=== PATIENT | female | born 1960 | race Two or more races ===

== ENCOUNTER 2023-10-23 11:02 | Inpatient (IN) | payer OTHER ==
[~2023-10-23] VITALS: Ht 167.6 cm; Wt 77.0 kg
[2023-10-23] MEDS: HEPARIN DRIP/D5W 100UNITS/ML 250 ML IV SCH (00:28)
[2023-10-23 11:51] LABS: Urine Bacteria None Seen /hpf (None Seen)
[2023-10-23 11:53] LABS: Basophils # (auto) 0 10 ^3/uL (0-0.2); Basophils % (auto) 0.3 % (0.0-2.0); Eosinophils # (auto) 0 10 ^3/uL (0-0.8); Eosinophils % (auto) 0.5 % (0.0-7.0); Hematocrit 38.4 % (36.0-46.0); Hemoglobin 12.8 g/dL (12.2-16.2); Lymphocytes # (auto) 0.6 10 ^3/uL (0.4-5.4); Mean Corpuscular Hemoglobin 30.7 pg (28.0-32.0); Mean Corpuscular Hgb Conc. 33.3 g/dL (32.0-36.0); Mean Corpuscular Volume 92.3 fL (80.0-100.0); Monocytes # (auto) 0.2 10 ^3/uL (0-1.3); Monocytes % (auto) 2.8 % (0.0-12.0); Neutrophils # (auto) 6.3 10 ^3/uL (1.6-8.6); Neutrophils % (auto) 87.4 % (37.0-80.0); Red Blood Cells 4.16 10^6/uL (4.0-5.20); Red Cell Distribution Width 14.6 % (11.8-14.3); White Blood Cell 7.2 10^3/uL (4.4-10.8)
[2023-10-23 11:57] LABS: Chloride 114 mmol/L (98-107); Sodium 140 mmol/L (136-145)
[2023-10-23 11:58] LABS: Anion Gap 5 (5-15); Calcium 10.2 mg/dL (8.7-10.4); Carbon Dioxide 21 mmol/L (20-30)
[2023-10-23 12:03] LABS: BUN/Creatinine Ratio 10.9 (10.0-20.0); Blood Urea Nitrogen 42 mg/dL (9-23); Glucose 94 mg/dL (74-106)
[2023-10-23 12:10] LABS: Potassium 6.3 mmol/L (3.5-5.1)
[2023-10-23 12:12] LABS: Urine Blood Negative /uL (Negative); Urine Clarity Clear (Clear); Urine Color Colorless (Yellow); Urine Protein, UAD 2+ (Negative); Urine Specific Gravity 1.012 (1.001-1.035); Urine Urobilinogen Normal (Negative); Urine WBC 11 /hpf (0 - 5); Urine pH 7.5 (5.0-9.0)
[2023-10-23] MEDS: ALBUTEROL SULF 2.5 MG/0.5ML(0.5%) NEB SOLN NEB ONE (12:27)
[2023-10-23] MEDS: FUROSEMIDE 20 MG/2 ML VIAL IV ONE (13:32)
[2023-10-23] MEDS: CALCIUM GLUC 1,000mg/50ml-NS 50 ML IV ONE (13:33)
[2023-10-23] MEDS: InsuLIN REG 1unit/0.01ml Soln (100units/ml) IV ONE (13:33)
[2023-10-23] MEDS: DEXTROSE (50%) 50ML SYRG IV ONE (13:36)
[2023-10-23] MEDS: SODIUM ZIRCONIUM CYCL 10 GM PAK PO ONE (13:36)
[2023-10-23] MEDS: SODIUM BICARB 8.4% 50Meq/50ml SYR INJ IV ONE (13:41)
[2023-10-23] MEDS ORDERED: DEXTROSE (50%) 50ML SYRG IV PRN (14:15)
[2023-10-23] MEDS ORDERED: hydrALAZINE HCL 20 MG/ML VL IV PRN (14:15)
[2023-10-23 14:34] LABS: Triglycerides 65 mg/dL (< 150)
[2023-10-23 14:35] LABS: LDL Cholesterol 190 mg/dL (< 100)
[2023-10-23 14:36] LABS: Cholesterol 291 mg/dL (< 200); HDL Cholesterol 87 mg/dL (40-59)
[2023-10-23 15:16] LABS: Protein, Urine 169.7 mg/dL (0.0-11.9)
[2023-10-23 15:19] LABS: Creatinine, Urine 61.65 mg/dL (30.0-125.0)
[2023-10-23] MEDS ORDERED: [UNRECOGNIZED DRUG - CODE] XX (15:41)
[2023-10-23] MEDS ORDERED: GLIP5TAB21 PO (15:41)
[2023-10-23] MEDS ORDERED: MORPHINE SULFATE INJ 2 MG/ml SYRG IV PRN (16:15)
[2023-10-23] MEDS ORDERED: ACETAMINOPHEN 325 MG TAB PO PRN (16:15)
[2023-10-23] MEDS ORDERED: NITROGLYCERIN 0.4 MG SL TAB SL PRN (16:15)
[2023-10-23] MEDS: ACCU-CHEK COMFORT CURVE STRIP VI SCH (17:00)
[2023-10-23] MEDS: InsuLIN REG 1unit/0.01ml Soln (100units/ml) SC SCH (19:02)
[2023-10-23] MEDS: SODIUM CHLORIDE 0.9% 2,000 ML IV ONE (19:06)
[2023-10-23] MEDS: SODIUM CHLORIDE 0.9% 1,000 ML IV SCH (19:08)
[2023-10-23] MEDS: HEPARIN SODIUM (PORCINE) 5000 UNITS/ML 1ML VIAL SC SCH (20:10)
[2023-10-23] MEDS: LABETALOL HCL 20 MG/4 ML VL IV ONE (21:57)
[2023-10-23] MEDS: ASPirin 325 MG TAB PO ONE (23:09)
[2023-10-23] MEDS: CLOPIDOGREL BISULFATE 75 MG TAB PO ONE (23:09)
[2023-10-23] MEDS: METOPROLOL TARTRATE 25 MG TAB PO SCH (23:17)
[2023-10-23 23:34] LABS: INR 0.99 (0.9-1.15); Partial Thromboplastin Time 26.5 SEC (24.5-34.5); Prothrombin Time 10.5 sec (9.3-11.8)
[2023-10-24] VITALS (22 sets, daily range): BP systolic 95–182; BP diastolic 43–85; PULSE 62–90; RESP 12–21; TEMP 98.3–100.3; O2SAT 92–98
[2023-10-24] MEDS: HEPARIN SODIUM (PORCINE) 5000 UNITS/ML 1ML VIAL IV ONE (00:32)
[2023-10-24 00:40] LABS: Basophils # (auto) 0 10 ^3/uL (0-0.2); Basophils % (auto) 0.3 % (0.0-2.0); Eosinophils # (auto) 0.1 10 ^3/uL (0-0.8); Eosinophils % (auto) 0.6 % (0.0-7.0); Hematocrit 34.2 % (36.0-46.0); Hemoglobin 11.3 g/dL (12.2-16.2); Lymphocytes # (auto) 0.9 10 ^3/uL (0.4-5.4); Lymphocytes % (auto) 9.6 % (10.0-50.0); Mean Corpuscular Hemoglobin 30.3 pg (28.0-32.0); Mean Corpuscular Hgb Conc. 33.1 g/dL (32.0-36.0); Mean Corpuscular Volume 91.5 fL (80.0-100.0); Monocytes # (auto) 0.6 10 ^3/uL (0-1.3); Monocytes % (auto) 6.8 % (0.0-12.0); Neutrophils # (auto) 7.4 10 ^3/uL (1.6-8.6); Neutrophils % (auto) 82.7 % (37.0-80.0); Red Blood Cells 3.74 10^6/uL (4.0-5.20); Red Cell Distribution Width 14.7 % (11.8-14.3)
[2023-10-24] MEDS: LABETALOL HCL 20 MG/4 ML VL IV PRN (02:16)
[2023-10-24 05:02] LABS: Basophils # (auto) 0 10 ^3/uL (0-0.2); Basophils % (auto) 0.4 % (0.0-2.0); Eosinophils # (auto) 0.1 10 ^3/uL (0-0.8); Eosinophils % (auto) 1.5 % (0.0-7.0); Hematocrit 33.6 % (36.0-46.0); Hemoglobin 11.4 g/dL (12.2-16.2); Lymphocytes # (auto) 1.5 10 ^3/uL (0.4-5.4); Lymphocytes % (auto) 15.9 % (10.0-50.0); Mean Corpuscular Hemoglobin 30.5 pg (28.0-32.0); Mean Corpuscular Hgb Conc. 33.9 g/dL (32.0-36.0); Mean Corpuscular Volume 90.2 fL (80.0-100.0); Monocytes # (auto) 0.6 10 ^3/uL (0-1.3); Monocytes % (auto) 6.4 % (0.0-12.0); Neutrophils # (auto) 6.9 10 ^3/uL (1.6-8.6); Neutrophils % (auto) 75.8 % (37.0-80.0); Nucleated Red Blood Cells % 0.1 %; Red Blood Cells 3.73 10^6/uL (4.0-5.20); Red Cell Distribution Width 14.5 % (11.8-14.3); White Blood Cell 9.2 10^3/uL (4.4-10.8)
[2023-10-24 05:17] LABS: Albumin 3.7 g/dL (3.2-4.8); Alkaline Phosphatase 66 U/L (46-116); Anion Gap 6 (5-15); Aspartate Aminotransferase 20 U/L (13-40); BUN/Creatinine Ratio 10.3 (10.0-20.0); Bilirubin, Total 0.4 mg/dL (0.2-1.0); Blood Urea Nitrogen 40 mg/dL (9-23); Calcium 9.7 mg/dL (8.7-10.4); Carbon Dioxide 22 mmol/L (20-30); Chloride 114 mmol/L (98-107); Glucose 100 mg/dL (74-106); Phosphorus 3.2 mg/dL (2.4-5.1); Sodium 142 mmol/L (136-145); Total Protein 6.5 g/dL (5.7-8.2); Uric Acid 6.2 mg/dL (3.1-7.8)
[2023-10-24 05:19] LABS: INR 1.03 (0.9-1.15); Partial Thromboplastin Time 49.8 SEC (24.5-34.5); Prothrombin Time 10.9 sec (9.3-11.8)
[2023-10-24 05:21] LABS: Alanine Aminotransferase < 9 U/L (7-40)
[2023-10-24 05:23] LABS: Potassium 5.6 mmol/L (3.5-5.1)
[2023-10-24] MEDS: HEPARIN DRIP/D5W 100UNITS/ML 250 ML IV SCH ×2 (07:00→14:01)
[2023-10-24] MEDS: DEXTROSE (50%) 50ML SYRG IV ONE ×2 (08:49→17:37)
[2023-10-24] MEDS: CALCIUM GLUC 1,000mg/50ml-NS 50 ML IV ONE (08:53)
[2023-10-24] MEDS: SODIUM ZIRCONIUM CYCL 10 GM PAK PO ONE ×2 (08:54→17:52)
[2023-10-24] MEDS: hydrALAZINE HCL 20 MG/ML VL IV PRN (08:57)
[2023-10-24] MEDS: InsuLIN REG 1unit/0.01ml Soln (100units/ml) IV ONE ×2 (08:59→17:50)
[2023-10-24] MEDS: ONDANSETRON HCL 4 MG/2 ML VIAL ONE (09:41)
[2023-10-24] MEDS: ONDANSETRON HCL 4 MG/2 ML VIAL IV ONE (09:41)
[2023-10-24] MEDS ORDERED: ONDANSETRON HCL 4 MG/2 ML VIAL IV PRN (09:45)
[2023-10-24] MEDS ORDERED: CLOPIDOGREL BISULFATE 75 MG TAB PO SCH (10:00)
[2023-10-24] MEDS: ASPirin 81 mg TAB PO SCH (10:29)
[2023-10-24] MEDS: NIFEdipine ER 30 MG TAB PO SCH (10:29)
[2023-10-24 13:37] LABS: INR 1.03 (0.9-1.15); Prothrombin Time 10.9 sec (9.3-11.8)
[2023-10-24 13:41] LABS: Partial Thromboplastin Time 87.1 SEC (24.5-34.5)
[2023-10-24 16:40] LABS: Chloride 112 mmol/L (98-107); Sodium 138 mmol/L (136-145)
[2023-10-24 16:41] LABS: Anion Gap 6 (5-15); Calcium 9.9 mg/dL (8.7-10.4); Carbon Dioxide 20 mmol/L (20-30)
[2023-10-24 16:46] LABS: BUN/Creatinine Ratio 9.3 (10.0-20.0); Blood Urea Nitrogen 38 mg/dL (9-23); Glucose 166 mg/dL (74-106)
[2023-10-24 16:49] LABS: Potassium 6.3 mmol/L (3.5-5.1)
[2023-10-24] MEDS: CALCIUM CHL 100MG/ML 500 MG in D5W 5% 100 ML IV ONE (17:15)
[2023-10-24] MEDS: SODIUM BICARB 8.4% 50Meq/50ml SYR INJ IV ONE (17:43)
[2023-10-24] MEDS: FUROSEMIDE 40 MG/4 ML VIAL IV ONE (17:49)
[2023-10-24 20:54] LABS: INR 1.05 (0.9-1.15); Prothrombin Time 11.1 sec (9.3-11.8)
[2023-10-24 21:00] LABS: Partial Thromboplastin Time 74.6 SEC (24.5-34.5)
[2023-10-25] VITALS (23 sets, daily range): BP systolic 118–170; BP diastolic 32–71; PULSE 56–81; RESP 12–23; TEMP 97.9–99; O2SAT 90–99
[2023-10-25 02:35] LABS: INR 1.05 (0.9-1.15); Prothrombin Time 11.1 sec (9.3-11.8)
[2023-10-25 02:37] LABS: Partial Thromboplastin Time 76.7 SEC (24.5-34.5)
[2023-10-25] MEDS ORDERED: HEPARIN DRIP/D5W 100UNITS/ML 250 ML IV SCH (03:00)
[2023-10-25 05:53] LABS: Urine Bacteria FEW /hpf (None Seen); Urine Blood TRACE /uL (Negative); Urine Clarity Clear (Clear); Urine Color Colorless (Yellow); Urine Protein, UAD 1+ (Negative); Urine Specific Gravity 1.008 (1.001-1.035); Urine Urobilinogen Normal (Negative); Urine WBC 29 /hpf (0 - 5)
[2023-10-25 06:15] LABS: Protein, Urine 78.3 mg/dL (0.0-11.9)
[2023-10-25 06:18] LABS: Creatinine, Urine 39.03 mg/dL (30.0-125.0)
[2023-10-25 09:59] LABS: Basophils # (auto) 0.1 10 ^3/uL (0-0.2); Eosinophils # (auto) 0.3 10 ^3/uL (0-0.8); Hematocrit 33.9 % (36.0-46.0); Hemoglobin 11.2 g/dL (12.2-16.2); Lymphocytes # (auto) 2.5 10 ^3/uL (0.4-5.4); Lymphocytes % (auto) 29.2 % (10.0-50.0); Mean Corpuscular Hemoglobin 30.3 pg (28.0-32.0); Mean Corpuscular Hgb Conc. 33.1 g/dL (32.0-36.0); Mean Corpuscular Volume 91.6 fL (80.0-100.0); Monocytes # (auto) 0.6 10 ^3/uL (0-1.3); Monocytes % (auto) 6.4 % (0.0-12.0); Neutrophils # (auto) 5.1 10 ^3/uL (1.6-8.6); Neutrophils % (auto) 59.4 % (37.0-80.0); Red Cell Distribution Width 14.4 % (11.8-14.3); White Blood Cell 8.6 10^3/uL (4.4-10.8)
[2023-10-25 10:07] LABS: Chloride 112 mmol/L (98-107); Potassium 4.7 mmol/L (3.5-5.1); Sodium 141 mmol/L (136-145)
[2023-10-25 10:08] LABS: Anion Gap 5 (5-15); Calcium 9.8 mg/dL (8.7-10.4); Carbon Dioxide 24 mmol/L (20-30)
[2023-10-25 10:13] LABS: BUN/Creatinine Ratio 11.1 (10.0-20.0); Blood Urea Nitrogen 47 mg/dL (9-23); Glucose 109 mg/dL (74-106)
[2023-10-25 10:14] LABS: INR 1.03 (0.9-1.15); Magnesium 1.6 mg/dL (1.6-2.6); Partial Thromboplastin Time 44.4 SEC (24.5-34.5); Prothrombin Time 10.9 sec (9.3-11.8)
[2023-10-25 10:15] LABS: Creatine Kinase IFCC 150 U/L (34-145); Phosphorus 3.4 mg/dL (2.4-5.1)
[2023-10-25] MEDS: HEPARIN DRIP/D5W 100UNITS/ML 250 ML IV SCH (10:30)
[2023-10-25 10:31] LABS: Uric Acid 6.2 mg/dL (3.1-7.8)
[2023-10-25] MEDS: cefTRIAXone 1GM/50ML D5W 50 ML IV ONE (12:32)
[2023-10-25] MEDS: PANTOPRAZOLE 40 MG TAB PO ONE (12:32)
[2023-10-25] MEDS: ATORVASTATIN 20 MG TAB PO ONE (12:32)
[2023-10-25] MEDS: amLODIPine BESYLATE 5 MG TAB PO ONE (12:43)
[2023-10-25] MEDS: FUROSEMIDE 20 MG TAB PO SCH (15:03)
[2023-10-25] MEDS: hydrALAZINE HCL 25 MG TAB PO SCH (15:03)
[2023-10-25 16:55] LABS: INR 1.03 (0.9-1.15); Partial Thromboplastin Time 65.5 SEC (24.5-34.5); Prothrombin Time 10.9 sec (9.3-11.8)
[2023-10-25] MEDS ORDERED: hydrALAZINE HCL 25 MG TAB PO SCH (22:00)
[2023-10-25] MEDS: ATORVASTATIN 20 MG TAB PO SCH (22:42)
[2023-10-25 22:52] LABS: INR 1.03 (0.9-1.15); Partial Thromboplastin Time 63.8 SEC (24.5-34.5); Prothrombin Time 10.9 sec (9.3-11.8)
[2023-10-26] VITALS (17 sets, daily range): BP systolic 122–156; BP diastolic 48–68; PULSE 52–75; RESP 10–20; TEMP 98.1–99.1; O2SAT 91–100
[2023-10-26 05:11] LABS: Basophils # (auto) 0.1 10 ^3/uL (0-0.2); Basophils % (auto) 0.8 % (0.0-2.0); Eosinophils # (auto) 0.4 10 ^3/uL (0-0.8); Eosinophils % (auto) 5.3 % (0.0-7.0); Hemoglobin 10.3 g/dL (12.2-16.2); Lymphocytes # (auto) 2.7 10 ^3/uL (0.4-5.4); Lymphocytes % (auto) 33.7 % (10.0-50.0); Mean Corpuscular Hemoglobin 30.1 pg (28.0-32.0); Mean Corpuscular Hgb Conc. 33.4 g/dL (32.0-36.0); Mean Corpuscular Volume 90.2 fL (80.0-100.0); Monocytes # (auto) 0.6 10 ^3/uL (0-1.3); Monocytes % (auto) 7.7 % (0.0-12.0); Neutrophils # (auto) 4.1 10 ^3/uL (1.6-8.6); Neutrophils % (auto) 52.5 % (37.0-80.0); Red Blood Cells 3.43 10^6/uL (4.0-5.20); Red Cell Distribution Width 14.3 % (11.8-14.3); White Blood Cell 7.9 10^3/uL (4.4-10.8)
[2023-10-26 05:19] LABS: Anion Gap 8 (5-15); Carbon Dioxide 23 mmol/L (20-30); Chloride 110 mmol/L (98-107); Potassium 4.3 mmol/L (3.5-5.1); Sodium 141 mmol/L (136-145)
[2023-10-26 05:20] LABS: Calcium 9.2 mg/dL (8.7-10.4)
[2023-10-26 05:25] LABS: BUN/Creatinine Ratio 9.6 (10.0-20.0); Blood Urea Nitrogen 46 mg/dL (9-23); Glucose 89 mg/dL (74-106)
[2023-10-26 05:35] LABS: INR 1.06 (0.9-1.15); Prothrombin Time 11.2 sec (9.3-11.8)
[2023-10-26 05:53] LABS: Partial Thromboplastin Time 77.2 SEC (24.5-34.5)
[2023-10-26] MEDS: PANTOPRAZOLE 40 MG TAB PO SCH (05:55)
[2023-10-26] MEDS: HEPARIN DRIP/D5W 100UNITS/ML 250 ML IV SCH (06:38)
[2023-10-26] MEDS: cefTRIAXone 1GM/50ML D5W 50 ML IV SCH (09:00)
[2023-10-26] MEDS ORDERED: amLODIPine BESYLATE 5 MG TAB PO SCH (10:00)
[2023-10-26] MEDS: ISOSORBIDE MONONITRATE 20 MG TAB PO SCH (10:00)
[2023-10-26 12:29] LABS: INR 1.05 (0.9-1.15); Partial Thromboplastin Time 55.8 SEC (24.5-34.5); Prothrombin Time 11.1 sec (9.3-11.8)
[2023-10-26 19:00] LABS: INR 1.05 (0.9-1.15); Partial Thromboplastin Time 47.3 SEC (24.5-34.5); Prothrombin Time 11.1 sec (9.3-11.8)
== END 2023-10-26 20:30 | disposition short-term general hospital (02) | DRG 280 ==
LOC: EDBD 11:02 → ER 11:02 → TELE 16:06 → DOU IN ICU 10-24 03:00 → TELE-WESTW 10-26 12:25
PROVIDERS: ADMIT Nurse Practitioner Family; ATTEND Internal Medicine
PROC: 05HD33Z Insertion of Infusion Device into Right Cephalic Vein, Percutaneous Approach (ICD-10-PCS; principal; 2023-10-25)
PROC: B54MZZA Ultrasonography of Right Upper Extremity Veins, Guidance (ICD-10-PCS; 2023-10-25)
DX: I21.4 Non-ST elevation (NSTEMI) myocardial infarction (principal); G93.41 Metabolic encephalopathy; I50.43 Acute on chronic combined systolic (congestive) and diastolic (congestive) heart failure; N17.0 Acute kidney failure with tubular necrosis; I16.1 Hypertensive emergency; N39.0 Urinary tract infection, site not specified; D84.89 Other immunodeficiencies; I13.0 Hypertensive heart and chronic kidney disease with heart failure and stage 1 through stage 4 chronic kidney disease, or unspecified chronic kidney disease; E11.649 Type 2 diabetes mellitus with hypoglycemia without coma; E66.01 Morbid (severe) obesity due to excess calories; E87.5 Hyperkalemia; E78.5 Hyperlipidemia, unspecified; E11.22 Type 2 diabetes mellitus with diabetic chronic kidney disease; D64.9 Anemia, unspecified; K80.20 Calculus of gallbladder without cholecystitis without obstruction; N18.9 Chronic kidney disease, unspecified; Z85.3 Personal history of malignant neoplasm of breast; Z79.4 Long term (current) use of insulin; Z79.899 Other long term (current) drug therapy; Z68.27 Body mass index [BMI] 27.0-27.9, adult
CPT/HCPCS: 36415; 70450; 71045; 76775; 80048; 80053; 80061; 81001; 82306; 82533; 82550; 82570; 82962; 83036; 83735; 84100; 84132; 84156; 84300; 84443; 84484; 84550; 85025; 85610; 85730; 87086; 93005; 93306; 94640; 99291; G0378; J1815; J2405; J7060

== ENCOUNTER 2023-10-29 15:09 | Emergency (ER) | payer OTHER ==
[~2023-10-29] VITALS: Ht 167.6 cm; Wt 90.9 kg
[~2023-10-29 15:09] MED LIST: GLIP5TAB21 PO; [UNRECOGNIZED DRUG - CODE] XX
[2023-10-29 16:19] LABS: Basophils # (auto) 0 10 ^3/uL (0-0.2); Basophils % (auto) 0.8 % (0.0-2.0); Eosinophils # (auto) 0.1 10 ^3/uL (0-0.8); Eosinophils % (auto) 2.1 % (0.0-7.0); Hematocrit 29.9 % (36.0-46.0); Hemoglobin 9.8 g/dL (12.2-16.2); Lymphocytes # (auto) 1.1 10 ^3/uL (0.4-5.4); Lymphocytes % (auto) 18.1 % (10.0-50.0); Mean Corpuscular Hemoglobin 29.6 pg (28.0-32.0); Mean Corpuscular Hgb Conc. 32.8 g/dL (32.0-36.0); Mean Corpuscular Volume 90.4 fL (80.0-100.0); Monocytes # (auto) 0.3 10 ^3/uL (0-1.3); Monocytes % (auto) 5.6 % (0.0-12.0); Neutrophils # (auto) 4.5 10 ^3/uL (1.6-8.6); Neutrophils % (auto) 73.4 % (37.0-80.0); Nucleated Red Blood Cells % 0.1 %; Red Blood Cells 3.31 10^6/uL (4.0-5.20); Red Cell Distribution Width 14.2 % (11.8-14.3); White Blood Cell 6.1 10^3/uL (4.4-10.8)
[2023-10-29 16:42] LABS: Alanine Aminotransferase 16 U/L (7-40); Albumin 3.8 g/dL (3.2-4.8); Alkaline Phosphatase 59 U/L (46-116); Anion Gap 12 (5-15); Aspartate Aminotransferase 20 U/L (13-40); BUN/Creatinine Ratio 10.7 (10.0-20.0); Blood Urea Nitrogen 50 mg/dL (9-23); Carbon Dioxide 17 mmol/L (20-30); Chloride 109 mmol/L (98-107); Glucose 112 mg/dL (74-106); Potassium 3.9 mmol/L (3.5-5.1); Sodium 138 mmol/L (136-145)
[2023-10-29 16:43] LABS: Bilirubin, Total 0.3 mg/dL (0.2-1.0); Total Protein 6.4 g/dL (5.7-8.2)
[2023-10-29 17:15] VITALS: RESP 18
[2023-10-29 17:17] VITALS: BP 166/61; PULSE 69; RESP 18; TEMP 98.6; O2SAT 100
== END 2023-10-29 17:26 | disposition home or self-care (01) ==
LOC: EDBD 15:09 → ER 15:09
DX: N19 Unspecified kidney failure (principal); R53.1 Weakness; E11.9 Type 2 diabetes mellitus without complications; I10 Essential (primary) hypertension
CPT/HCPCS: 36415; 80053; 85025; 93005